=== PATIENT | female | born 1995 | race Caucasian/White ===

== ENCOUNTER 2023-12-30 09:53 | Emergency (ER) | payer SELFPAY ==
[2023-12-30 09:57] VITALS: BP 135/84; PULSE 74; TEMP 36.6; O2SAT 97; BMI 42.5
--- NOTE | 2023-12-30 10:08 | ED.GENADUL1 ---
HPI HPI - General Adult General Chief complaint: Back Pain/Injury Stated complaint: BACK PAIN Time Seen by Provider: 12/30/23 09:58 Source: patient Mode of arrival: walk-in Limitations: no limitations History of Present Illness HPI narrative: 28-year-old female presents for mid back pain which started yesterday and was not associated with any trauma. She states she had pain like this once before, about a month ago, and she was diagnosed with acute pancreatitis. She has no abdominal pain at all. The pain does not radiate and she has no dysuria or hematuria. No chest pain or shortness of breath. Related Data Previous Rx's ?Medication ?Instructions ?Recorded acetaminophen 300 mg-codeine 30 mg 1 tab PO Q6H PRN pain 5 days #20 12/30/23 tablet tabs methocarbamol 500 mg tablet 500 mg PO Q8H PRN pain #20 tabs 12/30/23 Allergies Allergy/AdvReac Type Severity Reaction Status Date / Time No Known Drug Allergies Allergy Verified 12/30/23 09:57 Opioid HPI Opioid Management Most Recent Opioid Data: Last Pain Scale 8 12/30/23 11:04 Last MAR Pain Assessment 12/30/23 11:04 Review of Systems ROS Narrative A ten point review of systems is negative except as noted above. Exam Narrative Exam Narrative: Nurses note and vital signs reviewed and patient is not hypoxic. General: The patient appears mildly uncomfortable and prefers to sit up. Skin: Warm, dry, no pallor noted. There is no rash noted. Head: Normocephalic, atraumatic Eye: Normal conjunctiva, no drainage Ears, Nose, Mouth, and Throat: oral mucosa is moist. Nares patent. Cardiovascular: Regular Rate and Rhythm Respiratory: Patient is in no distress, no accessory muscle use, lungs are clear to auscultation, no wheezing, rales or rhonchi Back: No bruise or rash present. She has no apparent palpable tenderness along the cervical thoracic or lumbar spines nor anywhere else on her back. GI: Soft and nontender Musculoskeletal: The patient has no evidence of calf tenderness, no pitting edema, symmetrical pulses noted bilaterally Neurological: A&O, normal speech Psychiatric: Cooperative Constitutional Vital Signs, click to edit/add: Last Vital Signs Temp 97.9 F 12/30/23 09:57 Pulse 76 04/17/24 11:08 Resp 16 12/30/23 11:08 BP 149/85 H 12/30/23 11:08 Pulse Ox 99 12/30/23 11:08 O2 Del Method Room Air 12/30/23 10:17 Course Vital Signs Vital signs: Vital Signs Temperature 97.9 F 12/30/23 09:57 Pulse Rate 74 12/30/23 09:57 Respiratory Rate 16 12/30/23 09:57 Blood Pressure 135/84 12/30/23 09:57 Pulse Oximetry 97 12/30/23 09:57 Oxygen Delivery Method Room Air 12/30/23 09:57 Temperature 97.9 F 12/30/23 09:57 Pulse Rate 76 12/30/23 11:08 Respiratory Rate 16 12/30/23 11:08 Blood Pressure 149/85 H 12/30/23 11:08 Pulse Oximetry 99 12/30/23 11:08 Oxygen Delivery Method Room Air 12/30/23 10:17 Medical Decision Making MDM Narrative Medical decision making narrative: The patient has a hemoglobin of 8.5 but she has chronic anemia. She has had a workup for this and is supposed to take iron tablets but does not. She was encouraged to do so. X-rays show some degenerative changes and findings are discussed with the patient and her mother. She is able to be discharged home and will be treated symptomatically. Treatment diagnosis and follow-up were discussed with the patient. Differential Diagnosis Differential Diagnosis: Muscle strain, thoracic spine fracture, arthritis Lab Data Lab results reviewed: Yes I reviewed the patient's lab results Labs: Lab Results 12/30/23 12/30/23 Range/Units 10:08 10:10 WBC 10.5 (4.0-11.0) 10^3/uL RBC 4.45 (4.20-5.40) 10^6/uL Hgb 8.5 L (12.0-16.0) g/dL Hct 30.4 L (36.0-48.0) % MCV 68.3 L (81.0-99.0) fL MCH 19.1 L (26.7-34.0) pg MCHC 28.0 L (29.9-35.2) g/dL RDW 19.9 H (11.0-15.0) % Plt Count 441 (150-450) 10^3/uL MPV 10.8 (9.5-13.5) fL Neut % (Auto) 52.7 (43.0-75.0) % Lymph % (Auto) 37.6 (20.5-60.0) % [place] % (Auto) 5.9 (1.7-12.0) % Eos % (Auto) 2.8 (0.9-7.0) % Baso % (Auto) 0.7 (0.2-2.0) % Neut # (Auto) 5.6 (1.4-6.5) 10^3/uL Lymph # (Auto) 4.0 H (1.2-3.8) 10^3/uL [place] # (Auto) 0.6 (0.3-0.8) 10^3/uL Eos # (Auto) 0.3 (0.0-0.7) 10^3/uL Baso # (Auto) 0.1 (0.0-0.1) 10^3/uL Abs Immat Gran (auto) 0.03 (0.00-0.03) 10^3/uL Imm/Tot Granulo (auto) 0.3 (0.0-0.5) % Sodium 139 (136-145) mmol/L Potassium 4.0 (3.5-5.1) mmol/L Chloride 103 (98-107) mmol/L Carbon Dioxide 25.3 (21.0-32.0) mmol/L Anion Gap 14.7 BUN 14.0 (7.0-18.0) mg/dL Creatinine 0.64 (0.55-1.02) mg/dL Est GFR ( Amer) >60 (>=60) Est GFR (Non-Af Amer) >60 (>=60) BUN/Creatinine Ratio 21.9 Glucose 133 H (74-106) mg/dL Calcium 9.3 (8.5-10.1) mg/dL Total Bilirubin 0.2 (0.2-1.0) mg/dL Direct Bilirubin <0.1 (0.0-0.2) mg/dL AST 13 L (15-37) U/L ALT 17 (14-59) U/L Alkaline Phosphatase 87 (46-116) U/L Total Protein 7.9 (6.4-8.2) g/dL Albumin 3.2 L (3.4-5.0) g/dL Globulin 4.7 g/dL Albumin/Globulin Ratio 0.7 Amylase 54 (25-115) U/L Lipase 22.0 (16.0-77.0) U/L Serum HCG, Qual Negative (NEGATIVE) Urine Color Lt. yellow (YELLOW) Urine Clarity Clear (CLEAR) Urine pH 6.0 (5.0-9.0) Ur Specific [place] 1.025 (1.005-1.025) Urine Protein Negative (NEG/TRACE) mg/dL Urine Glucose (UA) Negative (NEGATIVE) mg/dL Urine Ketones Negative (NEGATIVE) mg/dL Urine Occult Blood Trace-i (NEGATIVE) Urine Nitrite Negative (NEGATIVE) Urine Bilirubin Negative (NEGATIVE) Urine Urobilinogen 0.2 (0.2-1.0) EU/dL Ur Leukocyte Esterase Trace A (NEGATIVE) Urine RBC 0-2 (0-2) #/HPF Urine WBC 0-2 A (NONE SEEN) #/HPF Ur Squamous Epith Cells Few A (NONE/RARE) #/LPF Urine Crystals None seen (None Seen) #/HPF Amorphous Sediment Rare Urine Bacteria Small A (NONE SEEN) #/HPF Urine Casts None seen (NONE SEEN) #/LPF Urine Mucus None seen (NONE SEEN) Imaging Data Thoracic spine x-ray: Radiologist's impression: ITS Impressions Thoracic Spine X-Ray 12/30/23 10:58 IMPRESSION: Minimal degenerative change Electronically authenticated by: YULISA SHABAZZ Date: 12/30/2023 11:57 Discharge Plan Discharge Stand Alone Forms: Portal Instructions Chief Complaint: Back Pain/Injury Clinical Impression: Thoracic back pain Patient Disposition: Home, Self-Care Time of Disposition Decision: 12:14 Condition: Good Mode of Transportation: Private Vehicle Prescriptions / Home Meds: New acetaminophen-codeine 300-30 mg tablet 1 tab PO Q6H PRN (Reason: pain) 5 Days Qty: 20 0RF methocarbamol 500 mg tablet 500 mg PO Q8H PRN (Reason: pain) Qty: 20 0RF Print Language: Maori Instructions: Thoracic Pain (ED) Referrals: Physician,Non-Staff, [Primary Care Provider] - 1 week
[2023-12-30 10:17] VITALS: O2SAT 99
[2023-12-30 10:18] LABS: Basophils Absolute Auto 0.1 10^3/uL (0.0-0.1); Basophils Percent Auto 0.7 % (0.2-2.0); Eosinophils Absolute Auto 0.3 10^3/uL (0.0-0.7); Eosinophils Percent Auto 2.8 % (0.9-7.0); Hematocrit 30.4 % (36.0-48.0); Hemoglobin 8.5 g/dL (12.0-16.0); Immature Granulocytes Abs Auto 0.03 10^3/uL (0.00-0.03); Immature Granulocytes Pct Auto 0.3 % (0.0-0.5); Lymphocytes Percent Auto 37.6 % (20.5-60.0); Mean Platelet Volume 10.8 fL (9.5-13.5); Monocytes Absolute Auto 0.6 10^3/uL (0.3-0.8); Monocytes Percent Auto 5.9 % (1.7-12.0); Neutrophils Absolute Auto 5.6 10^3/uL (1.4-6.5); Neutrophils Percent Auto 52.7 % (43.0-75.0); Platelet Count 441 10^3/uL (150-450); Red Blood Count 4.45 10^6/uL (4.20-5.40); White Blood Count 10.5 10^3/uL (4.0-11.0)
[2023-12-30 10:19] LABS: Bilirubin Urine NEGATIVE (NEGATIVE); Blood Urine TRACE-I (NEGATIVE); Clarity Urine CLEAR (CLEAR); Color Urine LT. YELLOW (YELLOW); Glucose Urine UA NEGATIVE (NEGATIVE); Ketones Urine NEGATIVE (NEGATIVE); Leukocyte Esterase Urine TRACE (NEGATIVE); Nitrite Urine NEGATIVE (NEGATIVE); Protein Urine NEGATIVE (NEG/TRACE); Specific Gravity Urine 1.025 (1.005-1.025); Urobilinogen Urine 0.2 EU/dL (0.2-1.0)
[2023-12-30 10:29] LABS: HCG Qualitative NEGATIVE (NEGATIVE)
[2023-12-30 10:33] LABS: Amorphous Sediment Urine RARE; Bacteria Urine SMALL #/HPF (NONE SEEN); Cast Seen? NONE SEEN #/LPF (NONE SEEN); Crystals Seen? None Seen #/HPF (None Seen); Mucus Urine NONE SEEN (NONE SEEN); RBC Urine 0-2 #/HPF (0-2); Squamous Epithelial Cell Urine FEW #/LPF (NONE/RARE); WBC Urine 0-2 #/HPF (NONE SEEN)
[2023-12-30 10:34] LABS: Mean Corpuscular Volume 68.3 fL (81.0-99.0)
[2023-12-30 10:35] LABS: Mean Corpuscular Hemoglobin 19.1 pg (26.7-34.0); Red Cell Distribution Width 19.9 % (11.0-15.0)
[2023-12-30 10:43] LABS: Alanine Aminotransferase 17 U/L (14-59); Albumin Globulin Ratio 0.7; Albumin Level 3.2 g/dL (3.4-5.0); Alkaline Phosphatase 87 U/L (46-116); Amylase 54 U/L (25-115); Anion Gap 14.7; Aspartate Amino Transferase 13 U/L (15-37); BUN Creatinine Ratio 21.9; Bilirubin Direct <0.1 mg/dL (0.0-0.2); Bilirubin Total 0.2 mg/dL (0.2-1.0); Calcium 9.3 mg/dL (8.5-10.1); Carbon Dioxide 25.3 mmol/L (21.0-32.0); Chloride 103 mmol/L (98-107); Estimated GFR (African America >60 (>=60); Estimated GFR (Non-African Ame >60 (>=60); Globulin 4.7 g/dL; Glucose 133 mg/dL (74-106); Sodium 139 mmol/L (136-145); Total Protein 7.9 g/dL (6.4-8.2)
--- NOTE | 2023-12-30 10:58 | XR_ITS ---
The [address] [address] Patient Name: FRANK AGUILAR MRN: [facility]:[id number] date: 1995 Sex: F Assigned Patient Location: ER Current Patient Location: ER Accession/Order Number: [id number] Exam Date: 12/30/2023 11:18 Report Date: 12/30/2023 11:57 At the request of: ROGER CROOK Procedure: XR thoracic spine 2V EXAMINATION: XR thoracic spine 2V HISTORY: Atraumatic pain COMPARISON: No relevant comparison available. FINDINGS: BONES: Normal alignment of the vertebral bodies with no acute fracture or spondylolisthesis. Anterior wedging T6-T11 likely physiologic. Minimal anterior spondylosis, no facet osteoarthropathy DISC SPACES: Normal. No significant disc height narrowing, subluxation, or endplate abnormality. PARASPINOUS: Negative. No paraspinous abnormality is seen. OTHER: Negative. XR/XR thoracic spine 2V IMPRESSION: Minimal degenerative change Electronically authenticated by: YULISA SHABAZZ Date: 12/30/2023 11:57
[2023-12-30] MEDS: KETOROLAC TROMETHAMINE 30 MG/ML VIAL IVP (11:04)
[2023-12-30 11:08] VITALS: BP 149/85; PULSE 76; O2SAT 99
== END 2023-12-30 12:36 | disposition home or self-care (01) ==
PROVIDERS: Emergency Provider Emergency Medicine
DX: M54.6 Pain in thoracic spine (principal)
CPT/HCPCS: 36415; 72070; 80048; 80076; 81001; 82150; 83690; 84703; 85025; 96374; 99284

== ENCOUNTER 2024-04-04 00:55 | Emergency (ER) | payer SELFPAY ==
[2024-04-04 00:59] VITALS: BP 171/97; PULSE 110; TEMP 36.5; O2SAT 97; BMI 42.9
--- NOTE | 2024-04-04 01:06 | PC.NURSE ---
Pain to left outer leg, leg slightly swollen, no redness or warmth noted, skin intact.
--- NOTE | 2024-04-04 01:16 | XR_ITS ---
The [address] [address] Patient Name: FRANK AGUILAR MRN: [id number] date: 1995 Sex: F Assigned Patient Location: ER Current Patient Location: Accession/Order Number: [id number] Exam Date: 04/04/2024 01:26 Report Date: 04/04/2024 04:10 At the request of: ROGER CROOK Procedure: XR tibia fibula LT 2V PROCEDURE: XR ankle LT min 3V, XR tibia fibula LT 2V HISTORY: Atraumatic intermittent pain COMPARISON: None. FINDINGS: BONES:No fracture, acute abnormality, or significant arthropathy. No bone lesion. SOFT TISSUES:No visible soft tissue swelling. EFFUSION:None visible. OTHER: Negative. XR/XR tibia fibula LT 2V IMPRESSION: 1. No suspicious findings to account for patient's symptoms. Electronically authenticated by: FLORI GALAN Date: 04/04/2024 04:10
--- NOTE | 2024-04-04 01:16 | XR_ITS ---
The [address] [address] Patient Name: FRANK AGUILAR MRN: [id number] date: 1995 Sex: F Assigned Patient Location: ER Current Patient Location: Accession/Order Number: [id number] Exam Date: 04/04/2024 01:26 Report Date: 04/04/2024 04:10 At the request of: ROGER CROOK Procedure: XR ankle LT min 3V PROCEDURE: XR ankle LT min 3V, XR tibia fibula LT 2V HISTORY: Atraumatic intermittent pain COMPARISON: None. FINDINGS: BONES:No fracture, acute abnormality, or significant arthropathy. No bone lesion. SOFT TISSUES:No visible soft tissue swelling. EFFUSION:None visible. OTHER: Negative. XR/XR ankle LT min 3V IMPRESSION: 1. No suspicious findings to account for patient's symptoms. Electronically authenticated by: FLORI GALAN Date: 04/04/2024 04:10
--- NOTE | 2024-04-04 01:17 | ED.GENADUL1 ---
HPI HPI - General Adult General Chief complaint: Extremity Injury, Lower Stated complaint: LT LEG BURNING Time Seen by Provider: 04/04/24 01:02 Source: patient Mode of arrival: walk-in Limitations: no limitations History of Present Illness HPI narrative: 28-year-old female presents to the emergency department for intermittent pain in her left leg. She has had it intermittently for 2 weeks and seems to start just above the lateral malleolus and then travels up the outside of her left leg. No pain in the calf and there is been no injury or unusual activities. She was worried she might have a blood clot. No chest pain or shortness of breath. She states when it becomes burning it seems to turn red. Related Data Home Medications ?Medication ?Instructions ?Recorded ?Confirmed No Known Home Medications 04/04/24 04/04/24 Allergies Allergy/AdvReac Type Severity Reaction Status Date / Time No Known Drug Allergies Allergy Verified 04/04/24 00:59 Opioid HPI Opioid Management Most Recent Opioid Data: Last Pain Scale 8 12/30/23 11:04 Review of Systems ROS Narrative A ten point review of systems is negative except as noted above. Exam Narrative Exam Narrative: Nurses note and vital signs reviewed and patient is not hypoxic. General: The patient appears well and in no apparent distress. Patient is resting comfortably on cart. Skin: Warm, dry, no pallor noted. There is no rash noted including on the left leg. Head: Normocephalic, atraumatic Eye: Normal conjunctiva, no drainage Ears, Nose, Mouth, and Throat: oral mucosa is moist. Nares patent. Cardiovascular: Regular Rate and Rhythm Respiratory: Patient is in no distress, no accessory muscle use Back: non-tender, no CVA tenderness bilaterally to percussion. GI: Nontender Musculoskeletal: The left leg is examined. There is no bruising rash or swelling. Dorsalis pedis pulse 2+. No swelling in the ankle and there is no tenderness in the calf area. Knee has full range of motion. Neurological: A&O, normal speech Psychiatric: Cooperative Constitutional Vital Signs, click to edit/add: Last Vital Signs Temp 97.7 F 04/04/24 00:59 Pulse 110 H 04/04/24 00:59 Resp 18 04/04/24 00:59 BP 171/97 H 04/04/24 00:59 Pulse Ox 97 04/04/24 00:59 O2 Del Method Room Air 04/04/24 00:59 Course Vital Signs Vital signs: Vital Signs Temperature 97.7 F 04/04/24 00:59 Pulse Rate 110 H 04/04/24 00:59 Respiratory Rate 18 04/04/24 00:59 Blood Pressure 171/97 H 04/04/24 00:59 Pulse Oximetry 97 04/04/24 00:59 Oxygen Delivery Method Room Air 04/04/24 00:59 Temperature 97.7 F 04/04/24 00:59 Pulse Rate 110 H 04/04/24 00:59 Respiratory Rate 18 04/04/24 00:59 Blood Pressure 171/97 H 04/04/24 00:59 Pulse Oximetry 97 04/04/24 00:59 Oxygen Delivery Method Room Air 04/04/24 00:59 Medical Decision Making MDM Narrative Medical decision making narrative: X-rays on my interpretation shows no acute findings and D-dimer is normal. I have no clinical suspicion at this point of DVT. The possibility of nerve type pain was discussed but she has no previous injury to that leg. She does not seem to have any back pain or upper leg pain. She will follow-up with podiatry. Treatment diagnosis and follow-up were discussed with the patient. Differential Diagnosis Differential Diagnosis: Nonspecific ankle pain, arthritis, tendinitis, paresthesia Lab Data Lab results reviewed: Yes I reviewed the patient's lab results Labs: Lab Results 04/04/24 Range/Units 01:25 D-Dimer 0.53 (<=0.59) mg/L FEU Imaging Data X-ray of the ankle and tibia/fibula: My impression: No acute findings Discharge Plan Discharge Stand Alone Forms: Portal Instructions Chief Complaint: Extremity Injury, Lower Clinical Impression: Left ankle pain Patient Disposition: Home, Self-Care Time of Disposition Decision: 02:05 Condition: Good Mode of Transportation: Private Vehicle Prescriptions / Home Meds: No Action No Known Home Medications Print Language: Cam[place]onian Instructions: Arthralgia (ED) Additional Instructions: Follow-up with Dr. Arita Referrals: Physician,Non-Staff, [Primary Care Provider] - 1 week Dayne Arita DPM [Physician] - 1 week
[2024-04-04 01:45] LABS: D Dimer 0.53 mg/L FEU (<=0.59)
== END 2024-04-04 02:17 | disposition home or self-care (01) ==
PROVIDERS: Emergency Provider Emergency Medicine
DX: M25.572 Pain in left ankle and joints of left foot (principal)
CPT/HCPCS: 36415; 73590; 73610; 85378; 99284